=== PATIENT | female | born 1955 | race African-American/Black ===

== ENCOUNTER 2020-06-11 20:22 | Emergency (ER) | payer MEDICAID, MEDICARE, OTHER ==
[~2020-06-11] VITALS: Ht 160 cm; Wt 88.0 kg
[~2020-06-11 20:22] MED LIST: ENAL5TAB PO; HYDR12.529 PO
[2020-06-11 20:52] VITALS: BP 159/85
[2020-06-11] MEDS ORDERED: ACETAMINOPHEN 325MG TABLET PO ONE (21:00)
[2020-06-11] MEDS ORDERED: HYDROCODONE/ACETAMINOPHEN 5/325MG TABLET PO ONE (21:00)
[2020-06-11] MEDS ORDERED: KETOROLAC 60MG/2ML VIAL IM ONE (21:00)
[2020-06-11] MEDS ORDERED: LIDOCAINE HCL 1% 20ML VIAL (Pyxis) INJ INFIL ONE (21:45)
== END 2020-06-11 22:14 | disposition home or self-care (01) ==
LOC: ER 20:22
DX: M25.552 Pain in left hip (principal); M79.18 Myalgia, other site; E78.00 Pure hypercholesterolemia, unspecified; I10 Essential (primary) hypertension
CPT/HCPCS: 20552; 93005; 96372; 99284; J1885; J3490

== ENCOUNTER 2021-09-05 09:24 | Emergency (ER) | payer MEDICARE ==
[~2021-09-05] VITALS: Ht 160 cm; Wt 88.0 kg
[~2021-09-05 09:24] MED LIST changes: -ENAL5TAB PO; +ENAL5TAB21 PO
[2021-09-05 12:25] LABS: BASOPHILS % 1.1 % (0.0-2.0); EOSINOPHILS % 0.8 % (0.0-5.0); HEMATOCRIT. 41.6 % (36.0-48.0); HEMOGLOBIN. 13.9 g/dL (12.0-16.0); LYMPHOCYTES % 48.6 % (20.0-50.0); MEAN CORPUSCULAR HEMOGLOBIN 30.2 pg (28.0-32.0); MEAN CORPUSCULAR VOLUME 90.7 fL (81.0-99.0); MONOCYTES % 5.8 % (2.0-8.0); NEUTROPHILS % 43.7 % (40.0-76.0); PLATELET 310 x1000/uL (130-400); RED BLOOD CELL COUNT 4.59 mill/uL (4.2-5.4)
[2021-09-05 13:30] VITALS: BP 132/75
[2021-09-05 14:58] LABS: CHLORIDE 105 mEq/L (98-107)
== END 2021-09-05 15:15 | disposition home or self-care (01) ==
LOC: ER 09:24
DX: R06.09 Other forms of dyspnea (principal); R22.0 Localized swelling, mass and lump, head; E78.00 Pure hypercholesterolemia, unspecified; I10 Essential (primary) hypertension; Z20.822 Contact with and (suspected) exposure to COVID-19
CPT/HCPCS: 36415; 71045; 80053; 83880; 84484; 85025; 87426; 93005; 99285

== ENCOUNTER 2023-05-18 19:45 | Emergency (ER) | payer MEDICARE ==
[~2023-05-18] VITALS: Ht 160 cm; Wt 83.0 kg
[~2023-05-18 19:45] MED LIST changes: +ENAL-75 PO; -ENAL5TAB21 PO
[2023-05-18 20:21] VITALS: BP 177/96; PULSE 85; RESP 16; TEMP 98.7; O2SAT 99
== END 2023-05-18 22:14 | disposition home or self-care (01) ==
LOC: ER 19:45
DX: M54.9 Dorsalgia, unspecified (principal); I10 Essential (primary) hypertension; E78.00 Pure hypercholesterolemia, unspecified
CPT/HCPCS: 99281